=== PATIENT | male | born 1995 | race Caucasian/White ===

== ENCOUNTER 2021-07-19 12:27 | Emergency (ER) | payer MEDICAID, OTHER ==
[~2021-07-19] VITALS: Ht 172.7 cm; Wt 75.5 kg
[2021-07-19 12:42] VITALS: BP 111/51
== END 2021-07-19 13:54 | disposition home or self-care (01) ==
LOC: ER 12:28
DX: S62.339A Displaced fracture of neck of unspecified metacarpal bone, initial encounter for closed fracture (principal); M79.641 Pain in right hand; X58.XXXA Exposure to other specified factors, initial encounter; Y93.89 Activity, other specified; Y92.89 Other specified places as the place of occurrence of the external cause; Y99.8 Other external cause status
CPT/HCPCS: 29125; 29130; 73130; 99283

== ENCOUNTER 2021-11-20 18:29 | Emergency (ER) | payer BC ==
[~2021-11-20] VITALS: Ht 172.7 cm; Wt 77.3 kg
[2021-11-20 18:42] VITALS: BP 116/62
[2021-11-20] MEDS ORDERED: acetaminophen 325mg tablet PO ONE (19:25)
[2021-11-20] MEDS ORDERED: HYDROcodone/acetaminophen 10/325mg tab PO ONE (21:25)
== END 2021-11-20 21:43 | disposition home or self-care (01) ==
LOC: ER 18:30
DX: S42.032A Displaced fracture of lateral end of left clavicle, initial encounter for closed fracture (principal); F17.200 Nicotine dependence, unspecified, uncomplicated; W00.0XXA Fall on same level due to ice and snow, initial encounter; Y93.89 Activity, other specified; Y92.89 Other specified places as the place of occurrence of the external cause; Y99.8 Other external cause status
CPT/HCPCS: 73030; 99283

== ENCOUNTER 2025-04-11 21:42 | Emergency (ER) | payer BC, MEDICAID ==
[~2025-04-11] VITALS: Ht 170.2 cm; Wt 69.1 kg
[2025-04-11 22:42] VITALS: BP 133/78; PULSE 87; RESP 17; O2SAT 99
[2025-04-11 23:49] LABS: BASOPHILS % (AUTO) 0.3 % (0-1); EOSINOPHILS % (AUTO) 0.1 % (0-6); HEMATOCRIT 45.1 % (42.0-52.0); HEMOGLOBIN 15.6 g/dl (14.0-17.9); LYMPHOCYTES # (AUTO) 2.6 X10'3 (1.1-4.8); MEAN CORPUSCULAR HGB CONC 34.6 g/dL (33.0-36.5); MONOCYTES # (AUTO) 0.4 X10'3 (0-0.9); MONOCYTES % (AUTO) 4.2 % (2-12); NEUTROPHILS # (AUTO) 7.2 X10'3 (1.8-7.7); NEUTROPHILS % (AUTO) 70.4 % (42-75); PLATELET COUNT 337 X10'3 (140-440); RED BLOOD COUNT 5.57 X10'6 (4.70-6.10); RED CELL DISTRIBUTION WIDTH 13.7 % (11.5-14.5); WHITE BLOOD COUNT 10.2 X10'3 (4.5-11.0)
[2025-04-12 00:08] LABS: ALANINE AMINOTRANSFERASE 40 U/L (12-78); ALBUMIN 4.2 G/DL (3.4-5.0); ALKALINE PHOSPHATASE 68 IU/L (46-116); ANION GAP 11 (8-16); BILIRUBIN,TOTAL 0.8 MG/DL (0.1-1.0); BLOOD UREA NITROGEN 10 MG/DL (7-18); BUN/CREATININE RATIO 7.8 (10.0-20.0); CHLORIDE 101 MMOL/L (99-107); CREATININE 1.28 MG/DL (0.60-1.10); GLUCOSE 105 MG/DL (70-104); SODIUM 140 MMOL/L (135-145); TOTAL CARBON DIOXIDE 27.9 MMOL/L (24-32); TOTAL PROTEIN 8.5 G/DL (6.4-8.2); eCRCL 81 ML/MIN; eGFR 67 ML/MIN
[2025-04-12 00:10] LABS: ASPARTATE AMINO TRANSFERASE 34 U/L (10-37); POTASSIUM 4.2 MMOL/L (3.5-5.1)
--- NOTE | 2025-04-12 00:44 | Physician Documentation ---
History of Present Illness ~ Chief Complaint: Vomiting Stated Complaint: NAUSEA Time Seen by MD: 22:30 Primary Medical Doctor: JEFFERSON MCCAULEY 29 year old male reports 6 days of vomiting, unable to keep food down. Denies diarrhea now but reports initially several episodes. Denies abdominal pain, fevers, urinary symptoms. Medication Reconciliation Allergies: Coded Allergies: No Known Allergies (Unverified , 04/11/25) Past Medical History Past Medical History: Extremity Fracture Past Surgical History: no surgical history Alcohol Use: Rarely Drug Use: none Lives In: Home Review of Systems All Other Systems at this time: Reviewed and Negative Physical Exam Vital Signs: Temperature: 96.8, Source: Temporal, Heart Rate: 87, Respiratory Rate: 17, BP: 133/78, Pulse Oximetry: 99, Weight: 69.100 Physical Exam HEENT: PERRL, moist oral mucosa, EOMI Pulmonary: No respiratory distress Cardiac: RRR, no murmur, rub or gallop GI: nondistended, soft, nontender, no guarding, no rebound MSK: no deformity Skin: w/d/i, no rash Neuro: alert, nonfocal Psych: normal affect Progress Results/Orders Results/Orders Orders - ZEE LOZANO MD Urinalysis, Cult If Indicated (04/11/25 22:32) Completed Orders - ZEE LOZANO MD Cbc/Diff (04/11/25 22:32) CMP (04/11/25 22:32) Ondansetron Disint. Tablet (Zofran Odt T (04/12/25 01:20) Medications Received in ER Medications (Trade) Dose Ordered Sig/[facility] Route PRN Reason Start Time Stop Time Status Last Admin Dose Admin (Zofran ODT tablet) 4 mg ONCE ONCE PO 04/12/25 01:20 04/12/25 01:21 DC 04/12/25 01:34 4 MG Vital Signs 04/11/25 04/11/25 22:00 22:42 Temp 96.8 Pulse 83 87 Resp 15 17 B/P (MAP) 133/78 (96) Pulse Ox 100 99 Laboratory Tests Test 04/11/25 23:20 White Blood Count 10.2 Red Blood Count 5.57 Hemoglobin 15.6 Hematocrit 45.1 Mean Corpuscular Volume 81.0 Mean Corpuscular Hemoglobin 28.0 Mean Corpuscular Hemoglobin Concent 34.6 Red Cell Distribution Width 13.7 Platelet Count 337 Mean Platelet Volume 8.0 Neutrophils (%) (Auto) 70.4 Lymphocytes (%) (Auto) 25.0 Monocytes (%) (Auto) 4.2 Eosinophils (%) (Auto) 0.1 Basophils (%) (Auto) 0.3 Neutrophils # (Auto) 7.2 Lymphocytes # (Auto) 2.6 Monocytes # (Auto) 0.4 Eosinophils # (Auto) 0.0 Basophils # (Auto) 0.0 CBC Comment Sodium Level 140 Potassium Level 4.2 Chloride Level 101 Carbon Dioxide Level 27.9 Anion Gap 11 Blood Urea Nitrogen 10 Creatinine 1.28 H Estimated GFR/1.73 m2 67 BUN/Creatinine Ratio 7.8 L Glucose Level 105 H Calcium Level 9.0 Total Bilirubin 0.8 Aspartate Amino Transf (AST/SGOT) 34 Alanine Aminotransferase (ALT/SGPT) 40 Alkaline Phosphatase 68 Total Protein 8.5 H Albumin 4.2 Globulin 4.3 Albumin/Globulin Ratio 1.0 L Chemistry Comments Medical Decision Making Findings 29 year old male with vomiting. Workup unremarkable. Zofran. Reassurance and discharge Additional Comments Ddx = viral gastroenteritis, appendicitis, food poisoning Departure Disposition: HOME / SELF CARE / HOMELESS Impression: Primary Impression: Viral gastroenteritis Condition: Stable Discharge Instructions: Viral Gastroenteritis, Adult Referrals: NO PRIMARY CARE PROVIDER (PCP) Education Educated: Patient, Other Educated regarding: diagnosis, treatment, prognosis, need for follow up Signature Scribe Signature: . Attestation: ZEE SON MD Apr 12, 2025 00:44
[2025-04-12] MEDS: ondansetron 4mg rapidly disintigrating tab PO ONE ×3 (01:34→02:02)
[2025-04-12 01:45] VITALS: TEMP 96.8
[2025-04-12] MEDS ORDERED: ONDA-243 PO (01:57)
== END 2025-04-12 02:02 | disposition home or self-care (01) ==
LOC: ER 21:43
DX: A08.4 Viral intestinal infection, unspecified (principal)
CPT/HCPCS: 36415; 80053; 85025; 99283